=== PATIENT | male | born 1955 | race Caucasian/White ===

== ENCOUNTER → 2021-06-30 | Outpatient (CLI) | payer MEDICARE, OTHER ==
[~2021-06-30] MED LIST: ACYC200 PO; Afrin15 ML; BENADRYL25 MG; Co Q-10100 MG PO; METO50ER; ONDA8 PO; OXYACE5T PO; SIMV10; Vitamin C100 M1
== END | disposition home or self-care (01) ==
LOC: LAB SHORT 13:30 → LAB 13:30
DX: R10.9 Unspecified abdominal pain (principal)
CPT/HCPCS: 87086